=== PATIENT | male | born 1975 | race Caucasian/White ===

== ENCOUNTER 2022-09-16 11:49 | Emergency (ER) | payer BC ==
[~2022-09-16] VITALS: Ht 182.9 cm; Wt 113.4 kg
[2022-09-16 14:11] VITALS: BP_SYST 134
--- NOTE | 2022-09-16 15:46 | NUR ---
PATIENT OBSERVED LEAVING THE ER. PATIENT INFORMED ADMITTING HE WAS LEAVING
== END 2022-09-16 15:46 | disposition left against medical advice (07) ==
LOC: SED 11:49
DX: M54.50 Low back pain, unspecified (principal); Z53.21 Procedure and treatment not carried out due to patient leaving prior to being seen by health care provider